=== PATIENT | female | born 1975 | race Caucasian/White ===

== ENCOUNTER 2020-12-05 18:26 | Emergency (ER) | payer MEDICAID ==
[~2020-12-05] VITALS: Ht 167.6 cm; Wt 68.0 kg
[~2020-12-05 18:26] MED LIST: TOBRAMYCIN0.3 % OU
[2020-12-05] MEDS ORDERED: PREDNISONE50 MG PO (20:09)
[2020-12-05 20:24] VITALS: BP 158/73
== END 2020-12-05 20:35 | disposition home or self-care (01) ==
LOC: ED 18:26
DX: T78.40XA Allergy, unspecified, initial encounter (principal); I10 Essential (primary) hypertension; X58.XXXA Exposure to other specified factors, initial encounter

== ENCOUNTER 2022-04-09 15:34 | Emergency (ER) | payer MEDICAID ==
[~2022-04-09] VITALS: Ht 167.6 cm; Wt 72.5 kg
[~2022-04-09 15:34] MED LIST changes: +PREDNISONE50 MG PO
[2022-04-09 15:50] VITALS: BP 145/91
[2022-04-09 16:00] VITALS: BP 152/81
[2022-04-09] MEDS ORDERED: TRAMADOL HYDROC50 M1 PO (16:09)
[2022-04-09] MEDS ORDERED: MOTRIN800 MG PO (16:09)
[2022-04-09 16:31] VITALS: BP 181/52
== END 2022-04-09 16:39 | disposition home or self-care (01) ==
LOC: ED 15:34
DX: S82.62XA Displaced fracture of lateral malleolus of left fibula, initial encounter for closed fracture (principal); I10 Essential (primary) hypertension; E05.00 Thyrotoxicosis with diffuse goiter without thyrotoxic crisis or storm; X50.0XXA Overexertion from strenuous movement or load, initial encounter; Y93.89 Activity, other specified; Y92.009 Unspecified place in unspecified non-institutional (private) residence as the place of occurrence of the external cause